=== PATIENT | male | born 1975 | race Caucasian/White ===

== ENCOUNTER 2018-07-24 00:23 | Emergency (ER) | payer OTHER ==
[2018-07-24 00:46] VITALS: TEMP 98
[2018-07-24] MEDS ORDERED: KETOROLAC 60 MG/2 ML VIAL IM STA (02:51)
[2018-07-24] MEDS ORDERED: ORPHENADRINE 30 MG/ML 2 ML VIAL IM STA (02:51)
--- NOTE | 2018-07-24 03:47 | CT ---
EXAMINATION TYPE: CT thor lumbar spine wo con DATE OF EXAM: 07/24/2018 COMPARISON: None HISTORY: mid to lower back pain CT DLP: 1602.60 mGycm Automated exposure control for dose reduction was used. FINDINGS: The thoracic and lumbar vertebra have overall fairly normal spacing and alignment. There is minor spu rring in the lumbar spine at L1-L2 3. There is no compression fracture. There is no thoracic or lumba r paraspinal mass. There is bilateral L5 spondylolysis. There is a minimal first-degree 5 mm L5-S1 sp ondylolisthesis. I see no focal bone destruction. There is posterior disc herniation at L4-5 in the m idline. 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 There is patchy pleural thickening and scarring in the upper lobes. There is mild pleural calcification posteriorly on the left side. Sacroiliac join ts are intact. IMPRESSION: NO ACUTE BONY ABNORMALITY. L5 SPONDYLOLYSIS WITH FIRST-DEGREE L5-S1 SPONDYLOLISTHESIS. MINOR DEGENERA TIVE DISC CHANGES IN THE LUMBAR SPINE. NEGATIVE THORACIC SPINE CT SCAN. POSTERIOR CENTRAL MODERATE L4-5 DISC HERNIATION. THERE IS DEVELOPMENTALLY ADEQUATE CANAL AND NO SIGNI FICANT SPINAL STENOSIS.
--- NOTE | 2018-07-24 04:11 | ED ---
Back Pain HPI - General Chief Complaint: Back Pain/Injury Stated Complaint: Back Pain/Injury Time Seen by Provider: 07/24/18 02:29 Source: patient, RN notes reviewed, old records reviewed Limitations: no limitations - History of Present Illness Initial Comments: Patient is a 43-year-old male presents for shortness of chief complaint of mid lower back pain. Symptoms started after he was lifting and table. Patient reports that he has had no history of back pain. He denies having anesthesias. He reports the pain rates on the left leg. Reports pain is worse with ambulation and certain movements. Patient reports he is having difficult time ambulating. He denies any fevers or chills or abdominal pain. - Related Data Previous Rx's Medication Instructions Recorded Cyclobenzaprine [Flexeril] 10 mg PO TID #20 tab 07/24/18 Ibuprofen 600 mg PO TID #20 tablet 07/24/18 Allergies Allergy/AdvReac Type Severity Reaction Status Date / Time acetaminophen [From NyQuil] Allergy Unknown Verified 04/15/15 17:14 codeine Allergy Unknown Verified 04/15/15 17:14 dextromethorphan HBr Allergy Unknown Verified 04/15/15 17:14 [From NyQuil] doxylamine succinate Allergy Unknown Verified 04/15/15 17:14 [From NyQuil] pseudoephedrine HCl Allergy Unknown Verified 04/15/15 17:14 [From NyQuil] Review of Systems ROS Statement: Those systems with pertinent positive or pertinent negative responses have been documented in the HPI. ROS Other: All systems not noted in ROS Statement are negative. Past Medical History Past Medical History: No Reported History History of Any Multi-Drug Resistant Organisms: None Reported Past Surgical History: Appendectomy, Hernia Repair Additional Past Surgical History / Comment(s): THROAT ISSUE Past Psychological History: No Psychological Hx Reported Smoking Status: Former smoker Past Alcohol Use History: Occasional Past Drug Use History: Marijuana General Exam - General Exam Comments Initial Comments: 43-year-old male. Alert and oriented. No distress. General: Well appearing, well nourished, in no distress. Oriented x 3, normal mood and affect . Ambulating without difficulty. Skin: Good turgor, no rash, unusual bruising or prominent lesions Hair: Normal texture and distribution. HEENT: Head: Normocephalic, atraumatic, no visible or palpable masses, depressions, or scaring. Eyes: Visual acuity intact, conjunctiva clear, sclera non-icteric, EOM intact, PERRL. Ears: EACs clear, TMs translucent & cone of light visualized. hearing intact. Nose: No external lesions, mucosa non-inflamed, septum and turbinates normal Mouth: Mucous membranes moist, no mucosal lesions. Teeth/Gums: No obvious caries or periodontal disease. No gingival inflammation or significant resorption. Pharynx: Mucosa non-inflamed, no tonsillar hypertrophy or exudate Neck: Supple, without lesions, bruits, or adenopathy, thyroid non-enlarged and non-tender Heart: No cardiomegaly or thrills; regular rate and rhythm, no murmur or gallop Lungs: Clear to auscultation and percussion Abdomen: Bowel sounds normal, no tenderness, organomegaly, masses, or hernia Back: Spine normal without deformity Patient has tenderness over the lumbar and lower thoracic spine. With certain movement Patient started yelling and severe pain. Yelling profanities at myself and other staff. Extremities: No amputations or deformities, cyanosis, edema or varicosities, peripheral pulses intact Musculoskeletal: Normal gait and station. No misalignment, asymmetry, crepitation, defects, tenderness, masses, effusions, decreased range of motion, instability, atrophy or abnormal strength or tone in the head, neck, spine, ribs , pelvis or extremities. Neurologic: CN 2-12 normal. Sensation to pain, touch, and proprioception normal. DTRs normal in upper and lower extremities. No pathologic reflexes. Psychiatric: Oriented X3, intact recent and remote memory, judgment and insight , normal mood and affect. Limitations: no limitations Course Vital Signs 07/24/18 07/24/18 00:40 04:42 Temperature 98.0 F Pulse Rate 64 56 L Respiratory 20 16 Rate Blood Pressure 104/64 107/75 O2 Sat by Pulse 99 96 Oximetry Medical Decision Making - Medical Decision Making 43-year-old male presents raise worse today with back pain after lifting a small table. He has range of motion in his legs noted. Patient was complaining of severe pain. He was given IM Toradol and Norflex. We did complete a CT of his thoracic and lumbar spine. Is using it for any acute process. Some evidence of mild spinal listhesis spinal lithiasis L5. Patient has normal sensation distally. Patient has no saddle anesthesias. Discussed likely a muscle spasm in related pinched nerve. Discussed a follow-up with a commercial marketing specialist. Given a prescription for Motrin and Flexeril. Patient did seem to have some pain med seeking tendencies, and was visualized ambulating without any difficulty by nursing staff when physician or the nurse taking care of Patient were not present. Disposition Clinical Impression: Back spasm Disposition: HOME SELF-CARE Condition: Good Instructions: Acute Low Back Pain (ED) Additional Instructions: Patient ice to apply warm compresses over the back. Follow-up with primary care provider and with commercial marketing specialist. Return to emergency department if any alarming signs or symptoms occur. Prescriptions: Cyclobenzaprine [Flexeril] 10 mg PO TID #20 tab Ibuprofen 600 mg PO TID #20 tablet Is patient prescribed a controlled substance at d/c from ED?: No Referrals: Storm Madsen MD [Primary Care Provider] - 1-2 days Glynn Gupta DO [Doctor of Osteopathic Medicine] - 1-2 days Time of Disposition: 04:09
[2018-07-24 04:43] VITALS: BP 107/75; PULSE 56; RESP 16
== END 2018-07-24 04:29 | disposition home or self-care (01) ==
LOC: EC 00:23
DX: M62.830 Muscle spasm of back (principal); M43.16 Spondylolisthesis, lumbar region; Z87.891 Personal history of nicotine dependence; Z88.8 Allergy status to other drugs, medicaments and biological substances; Z88.5 Allergy status to narcotic agent; Z88.6 Allergy status to analgesic agent
CPT/HCPCS: 72128; 72131; 99284; 96372 ×2; J2360; J1885

== ENCOUNTER 2020-10-05 18:48 | Emergency (ER) | payer OTHER ==
--- NOTE | 2020-10-05 19:02 | ED ---
Recheck HPI - General Source: patient, family Mode of arrival: ambulatory Limitations: no limitations <Juaquin Deal - Last Filed: 10/05/20 20:14> <Temi Duke - Last Filed: 10/07/20 13:26> - General Chief Complaint: Recheck/Abnormal Lab/Rx Stated Complaint: Multiple Complaints Time Seen by Provider: 10/05/20 18:59 - History of Present Illness Initial Comments: 45-year-old male presents to emergency department with multiple chief complaints. Patient states she has not seen his primary care physician in several years. Patient states he has developed itching in his bilateral lower extremities and hands since yesterday. Patient also reports a rash in certain spots but the pruritus is an area is without any noticeable rash. He also reports a burning sensation that is exacerbated with palpation. Patient also reports a left-sided hernia that has been present for several years but has never been evaluated. 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 States this is nonbloody diarrhea. He did report nausea with several episodes, loose nonbloody vomiting today Denies any chest pain and shortness of breath. 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 He denies any penile discharge testicular swelling or erythema. (Juaquin Deal) - Related Data Home Medications Medication Instructions Recorded Confirmed Acetaminophen Tab [Tylenol Tab] 1,000 mg PO Q6HR PRN 10/05/20 10/05/20 Cyclobenzaprine [Flexeril] 10 mg PO TID PRN 10/05/20 10/05/20 Ibuprofen [Motrin Ib] 400 mg PO Q8H PRN 10/05/20 10/05/20 Previous Rx's Medication Instructions Recorded Ondansetron Odt [Zofran Odt] 4 mg PO Q8HR PRN #10 tab 10/05/20 Tamsulosin [Flomax] 0.4 mg PO DAILY #7 cap 10/05/20 hydrOXYzine HCL [Atarax] 25 mg PO TID PRN #15 tab 10/05/20 Allergies Allergy/AdvReac Type Severity Reaction Status Date / Time acetaminophen [From NyQuil] Allergy Unknown Verified 10/05/20 20:19 codeine Allergy Unknown Verified 10/05/20 20:19 dextromethorphan HBr Allergy Unknown Verified 10/05/20 20:19 [From NyQuil] doxylamine succinate Allergy Unknown Verified 10/05/20 20:19 [From NyQuil] pseudoephedrine HCl Allergy Unknown Verified 10/05/20 20:19 [From NyQuil] Review of Systems ROS Other: All systems not noted in ROS Statement are negative. <RomangarfieldFrancis damicoo - Last Filed: 10/05/20 20:14> ROS Other: All systems not noted in ROS Statement are negative. <Temi Duke Montserrat - Last Filed: 10/07/20 13:26> ROS Statement: Those systems with pertinent positive or pertinent negative responses have been documented in the HPI. Past Medical History Past Medical History: No Reported History History of Any Multi-Drug Resistant Organisms: None Reported Past Surgical History: Appendectomy, Hernia Repair Additional Past Surgical History / Comment(s): THROAT ISSUE Past Psychological History: No Psychological Hx Reported Smoking Status: Former smoker Past Alcohol Use History: Occasional Past Drug Use History: Marijuana <Juaquin Deal - Last Filed: 10/05/20 20:14> General Exam Limitations: no limitations General appearance: alert, in no apparent distress Head exam: Present: atraumatic, normocephalic, normal inspection Eye exam: Present: normal appearance, PERRL, EOMI Pupils: Present: normal accommodation ENT exam: Present: normal exam, normal oropharynx, mucous membranes moist, TM's normal bilaterally, normal external ear exam Neck exam: Present: normal inspection, full ROM. Absent: tenderness Respiratory exam: Present: normal lung sounds bilaterally. Absent: respiratory distress Cardiovascular Exam: Present: regular rate, normal rhythm, normal heart sounds GI/Abdominal exam: Present: soft, hernia (Left-sided inguinal hernia). Absent: distended, tenderness, guarding, rebound exam: Present: normal inspection (Only one testicle). Absent: testicular tenderness, urethral discharge, scrotal swelling, vertical testicular lie Extremities exam: Present: normal inspection, full ROM, normal capillary refill. Absent: tenderness, pedal edema, joint swelling Back exam: Present: normal inspection, full ROM. Absent: tenderness, CVA tenderness (R), CVA tenderness (L) Neurological exam: Present: alert, oriented X3, normal gait Psychiatric exam: Present: normal affect, normal mood Skin exam: Present: warm, dry, intact, normal color <Juaqiun Deal - Last Filed: 10/05/20 20:14> Course Vital Signs 10/05/20 10/05/20 18:52 20:30 Temperature 98.2 F 98.8 F Pulse Rate 53 L 58 L Respiratory 18 16 Rate Blood Pressure 128/77 100/70 O2 Sat by Pulse 99 98 Oximetry Medical Decision Making - Lab Data Result diagrams: 10/05/20 19:22 10/05/20 19:22 <Juaquin Deal - Last Filed: 10/05/20 20:14> - Lab Data Result diagrams: 10/05/20 19:22 10/05/20 19:22 <Temi Duke - Last Filed: 10/07/20 13:26> - Medical Decision Making 45-year-old male presents to emergency Department with multiple chief complaints. On physical examination, patient has a palpable left-sided hernia. Patient was given analgesia and attempt a reduction was performed. I was not able to detect any rashes on his legs or hands. Successful reduction of the hernia. It was fat-containing and has been present chronically. CBC remarkable. CMP reveals slight elevation in creatinine 1.34. Likely secondary to hydronephrosis. Patient was given antiemetics, Zofran, IV fluids and Atarax. CT of the abdomen and pelvis reveals left-sided hydronephrosis with a 5 mm renal stone in the ureter. There is also fat-containing hernia. Patient was advised to follow-up with his primary care physician. He was also advised to follow with a general surgeon regarding the hernia. Patient is otherwise well- appearing. He will be discharged with Zofran Tylenol 3 and Flomax. Return parameters discussed the patient was understanding Wandy. Case discussed with (Juaquin Deal) I was available for consultation in the emergency department. The history and physical exam were done by the midlevel provider. I was consulted for this patients care. I reviewed the case with the midlevel provider and based on their presentation of the patient, I agree with the assessment, medical decision making and plan of care as documented. Chart was dictated using [employer] dictation software. Attempts were made to correct any dictation errors however some typographical errors may persist. Patient was seen during a national state of emergency due to the Covid-19 pandemic. (Temi Duke) - Lab Data Lab Results 10/05/20 10/05/20 10/05/20 Range/Units 19:22 19:22 19:22 WBC 6.2 (3.8-10.6) k/uL RBC 5.26 (4.30-5.90) m/uL Hgb 16.8 (13.0-17.5) gm/dL Hct 48.2 (39.0-53.0) % MCV 91.6 (80.0-100.0) fL MCH 32.0 (25.0-35.0) pg MCHC 34.9 (31.0-37.0) g/dL RDW 12.4 (11.5-15.5) % Plt Count 203 (150-450) k/uL MPV 8.6 Neutrophils % 61 % Lymphocytes % 24 % Monocytes % 12 % Eosinophils % 1 % Basophils % 0 % Neutrophils # 3.8 (1.3-7.7) k/uL Lymphocytes # 1.5 (1.0-4.8) k/uL Monocytes # 0.7 (0-1.0) k/uL Eosinophils # 0.1 (0-0.7) k/uL Basophils # 0.0 (0-0.2) k/uL Sodium 136 L (137-145) mmol/L Potassium 4.0 (3.5-5.1) mmol/L Chloride 99 (98-107) mmol/L Carbon Dioxide 30 (22-30) mmol/L Anion Gap 7 mmol/L BUN 16 (9-20) mg/dL Creatinine 1.34 H (0.66-1.25) mg/dL Est GFR (CKD-EPI)AfAm 74 (>60 ml/min/1.73 sqM) Est GFR (CKD-EPI)NonAf 64 (>60 ml/min/1.73 sqM) Glucose 100 H (74-99) mg/dL Plasma Lactic Acid Kenny 1.5 (0.7-2.0) mmol/L Calcium 9.1 (8.4-10.2) mg/dL Total Bilirubin 3.1 H (0.2-1.3) mg/dL AST 28 (17-59) U/L ALT 27 (4-49) U/L Alkaline Phosphatase 66 (38-126) U/L Total Protein 7.4 (6.3-8.2) g/dL Albumin 4.4 (3.5-5.0) g/dL Disposition Is patient prescribed a controlled substance at d/c from ED?: No Time of Disposition: 20:18 <SayFranciso - Last Filed: 10/05/20 20:14> <Temi Duke - Last Filed: 10/07/20 13:26> Clinical Impression: Hydronephrosis, Nephrolithiasis, Inguinal hernia, left Disposition: HOME SELF-CARE Condition: Stable Instructions (If sedation given, give patient instructions): Inguinal Hernia (ED) Additional Instructions: Follow-up with the urologist regarding her kidney stone. Follow-up with a general surgeon regarding the inguinal hernia. Take prescribed medication as directed. Drink plenty of fluids. Return to emergency department if symptoms worsen. Prescriptions: hydrOXYzine HCL [Atarax] 25 mg PO TID PRN #15 tab PRN Reason: Itching Tamsulosin [Flomax] 0.4 mg PO DAILY #7 cap Ondansetron Odt [Zofran Odt] 4 mg PO Q8HR PRN #10 tab PRN Reason: Nausea Referrals: None,Stated [Primary Care Provider] - 1-2 days Azael Robert MD [STAFF PHYSICIAN] - 1-2 days Donna Torres MD [STAFF PHYSICIAN] - 1-2 days
[2020-10-05] MEDS ORDERED: ONDANSETRON 4 MG/2 ML VIAL IVP STA (19:12)
[2020-10-05] MEDS ORDERED: hydrOXYzine HCL 25 MG TAB PO STA (19:13)
[2020-10-05] MEDS ORDERED: SODIUM CHLORIDE 0.9% 1,000 ML IV STA (19:14)
[2020-10-05 19:35] LABS: Basophils % (A) 0 %; Eosinophils # (A) 0.1 k/uL (0-0.7); Eosinophils % (A) 1 %; HCT 48.2 % (39.0-53.0); HGB 16.8 gm/dL (13.0-17.5); Lymphocytes # (A) 1.5 k/uL (1.0-4.8); Lymphocytes % (A) 24 %; MCHC 34.9 g/dL (31.0-37.0); MCV 91.6 fL (80.0-100.0); Mean Platelet Volume 8.6; Monocytes # (A) 0.7 k/uL (0-1.0); Monocytes % (A) 12 %; Neutrophils # (A) 3.8 k/uL (1.3-7.7); Neutrophils % (A) 61 %; Platelet Count 203 k/uL (150-450); RBC 5.26 m/uL (4.30-5.90); RDW 12.4 % (11.5-15.5); WBC 6.2 k/uL (3.8-10.6)
[2020-10-05 19:43] LABS: Albumin 4.4 g/dL (3.5-5.0); Calcium 9.1 mg/dL (8.4-10.2); Total Bilirubin 3.1 mg/dL (0.2-1.3); Total Protein 7.4 g/dL (6.3-8.2)
--- NOTE | 2020-10-05 20:02 | CT ---
EXAMINATION TYPE: CT abdomen pelvis w con DATE OF EXAM: 10/05/2020 COMPARISON: 09/20/2009 HISTORY: Left inguinal hernia and vomiting. CT DLP: 581.6 mGycm Automated exposure control for dose reduction was used. CONTRAST: Performed with IV Contrast, patient injected with 100ml mL of Isovue 300. Images obtained from the diaphragm to the floor the pelvis with IV contrast. Lung bases are clear. There is no pleural effusion. Heart size is normal. There is no pericardial eff usion. Liver shows no focal defect. Spleen stomach pancreas gallbladder appear intact. The bile ducts are no t dilated. There is no adrenal mass. Kidneys have normal size. There is left side hydronephrosis and hydroureter . There is obstructing 5 mm calculus in the mid left ureter. Bladder distends smoothly. There is left inguinal hernia that contains fat. There is no free fluid in the pelvis. There is no pelvic mass. Th ere are a few sigmoid diverticula. There is no diverticulitis. There are clips from surgery at the ce cum. Delayed images show normal excretion on the right side and delayed left side pyelogram. There is no s ign of a calculus within the kidneys. IMPRESSION: Left-sided hydronephrosis with obstructing calculus in the mid left ureter. Obstruction is new compar ed to old exam. Left inguinal hernia contains fat and is increased slightly compared to old exam.
[2020-10-05 20:34] VITALS: BP 100/70; PULSE 58; RESP 16; TEMP 98.8
== END 2020-10-05 20:40 | disposition home or self-care (01) ==
LOC: EC 18:48
DX: N13.2 Hydronephrosis with renal and ureteral calculous obstruction (principal); K40.90 Unilateral inguinal hernia, without obstruction or gangrene, not specified as recurrent; Z87.891 Personal history of nicotine dependence; Z79.899 Other long term (current) drug therapy; Z79.1 Long term (current) use of non-steroidal anti-inflammatories (NSAID)
CPT/HCPCS: 36415; 80053; 83605; 85025; 74177; 99284; 96374; 96361; J2405; Q9967